=== PATIENT | female | born 1960 | race American Indian/Alaskan Native ===

== ENCOUNTER 2022-10-02 05:43 | Observation (INO) | payer BC ==
[2022-10-02] MEDS ORDERED: NITROGLYCERIN 0.4 MG/TAB SL ONE (06:12)
[2022-10-02] MEDS ORDERED: ASPIRIN EC 325 MG TABLET PO ONE (06:12)
[2022-10-02 06:23] LABS: Hematocrit 39.9 % (36.0-45.0); Lymphocytes % 22.9 % (15.3-44.8); MCV 94.7 fL (80-100); MPV 7.6 fL (7.6-11.3); RBC Red Blood Cell Count 4.22 M/uL (3.86-4.86)
[2022-10-02 06:42] LABS: Albumin 3.5 g/dL (3.4-5.0); Bilirubin Total 0.5 mg/dL (0.2-1.0); Potassium 3.4 mmol/L (3.5-5.1); Protein, Total 7.9 g/dL (6.4-8.2); Troponin High Sensitivity 4.3 pg/mL (<58.9)
[2022-10-02] MEDS ORDERED: ACETAMINOPHEN 500 MG TAB ONE (06:42)
--- NOTE | 2022-10-02 06:56 | ER ---
Nurse's Notes [facility] Name: Trudi Pate Age: 61 yrs Sex: Female : 1960 Arrival Date: 10/02/2022 Time: 05:46 Bed 4 Private MD: Diagnosis: Chest pain, unspecified Presentation: 10/02 05:56 Chief complaint: Patient states: "I have been having a lot of pressure in my chest. It tw5 isn't really pain, it is just pressure. I dont really know how to describe it except I just feel weird. ". Coronavirus screen: Vaccine status: Patient reports receiving the 2nd dose of the covid vaccine. Moderna. Ebola Screen: Patient negative for fever greater than or equal to 101.5 degrees Fahrenheit, and additional compatible Ebola Virus Disease symptoms Patient denies exposure to infectious person. Patient denies travel to an Ebola-affected area in the 21 days before illness onset. Risk Assessment: Do you want to hurt yourself or someone else? Patient reports no desire to harm self or others. Onset of symptoms is unknown. 05:56 Method Of Arrival: Wheelchair tw5 05:56 Acuity: MOIRA 2 tw5 06:20 Initial Sepsis Screen: Does the patient meet any 2 criteria? No. Patient's initial ll3 sepsis screen is negative. Does the patient have a suspected source of infection? No. Patient's initial sepsis screen is negative. Triage Assessment: 06:00 General: Appears in no apparent distress. Behavior is calm, cooperative, appropriate tw5 for age. Pain: Pain currently is 6 out of 10 on a pain scale. Cardiovascular: Capillary refill < 3 seconds. Historical: - Allergies: 06:00 PENICILLINS; tw5 06:00 Codeine; tw5 - Home Meds: 06:00 propranolol Oral [Active]; tw5 - PMHx: 06:00 Migraine; tw5 - PSHx: 06:00 Appendectomy; tubal ligation; heart ablation-2003; tw5 - Immunization history:: Flu vaccine is not up to date. - Social history:: Smoking status: Patient reports the use of cigarette tobacco products, smokes one-half pack cigarettes per day. - Family history:: not pertinent. Screenin:00 [facility] Fall Risk Assessment (Adult) History of falling in the last 3 months, ll3 including since admission No falls in past 3 months (0 pts) Confusion or Disorientation No (0 pts) Intoxicated or Sedated No (0 pts) Impaired Gait No (0 pts) Mobility Assist Device Used No (0 pt) Altered Elimination No (0 pt) Score/Fall Risk Level 0 - 2 = Low Risk Oriented to surroundings, Maintained a safe environment, Educated pt \\T\\ family on fall prevention, incl call for assistance when getting out of bed. Abuse screen: Denies threats or abuse. Denies injuries from another. Nutritional screening: No deficits noted. Tuberculosis screening: No symptoms or risk factors identified. Assessment: 06:20 General: Appears uncomfortable, Behavior is calm, cooperative. Pain: Complains of pain ll3 in anterior aspect of right upper chest, anterior aspect of left upper chest and mid-sternal area Pain radiates to right clavicle, left clavicle and left submandibular area Pain currently is 7 out of 10 on a pain scale. Quality of pain is described as pressure, Pain began 2 weeks ago Is continuous. Neuro: Level of Consciousness is awake, alert, obeys commands, Oriented to person, place, time, situation. Cardiovascular: Reports chest pain, shortness of breath, Patient's skin is warm and dry. Rhythm is sinus rhythm Chest pain is described as diffuse, Pain is 7 out of 10 on a pain scale. quality is pressure, is located in right left anterior chest wall radiates to left back jaw(s) began 2 weeks ago episodes are continuous. Respiratory: Reports shortness of breath at rest Respiratory effort is even, unlabored, Respiratory pattern is regular, symmetrical. Derm: Skin is pink, warm \\T\\ dry. 06:59 Reassessment: Patient and/or family updated on plan of care and expected duration. Pain ll3 level reassessed. Patient is alert, oriented x 3, equal unlabored respirations, skin warm/dry/pink. States pain is 1/10 Patient states feeling better. Patient states symptoms have improved. 08:06 Reassessment: Patient appears in no apparent distress at this time. Patient and/or hb family updated on plan of care and expected duration. Pain level reassessed. Patient is alert, oriented x 3, equal unlabored respirations, skin warm/dry/pink. 09:26 Reassessment: Patient appears in no apparent distress at this time. Patient and/or hb family updated on plan of care and expected duration. Pain level reassessed. Patient is alert, oriented x 3, equal unlabored respirations, skin warm/dry/pink. 09:40 Reassessment: Dr. Blas at bedside. hb 10:45 Reassessment: Patient appears in no apparent distress at this time. Patient and/or hb family updated on plan of care and expected duration. Pain level reassessed. Patient is alert, oriented x 3, equal unlabored respirations, skin warm/dry/pink. Vital Signs: 05:54 BP 149 / 98; Pulse 91; Resp 17; Pulse Ox 100% on R/A; pf1 05:56 Resp 18; Temp 98.6; Weight 58.06 kg; Height 5 ft. 4 in. (162.56 cm); Pain 6/10; tw5 06:21 Pain 5/10; ll3 06:26 Pain 3/10; ll3 06:31 Pain 1/10; ll3 08:06 BP 148 / 96; Pulse 79; Resp 15; Pulse Ox 100% on R/A; hb 09:26 BP 144 / 92; Pulse 85; Resp 16; Pulse Ox 99% on R/A; Pain 0/10; hb 05:56 Body Mass Index 21.97 (58.06 kg, 162.56 cm) tw5 ED Course: 05:46 Patient arrived in ED. ja2 05:48 Jairo Saab MD is Attending Physician. rt 05:58 Triage completed. tw5 06:00 Arm band placed on. tw5 06:20 Inserted saline lock: 22 gauge in left antecubital area, using aseptic technique. Blood ll3 collected. 06:20 Initial lab(s) drawn, by me, sent to lab. Patient maintains SpO2 saturation greater ll3 than 95% on room air. 06:39 Chest Single View XRAY In Process Unspecified. EDMS 06:56 Huy Blas MD is Hospitalizing Provider. rt 07:00 Patient has correct armband on for positive identification. Placed in gown. Bed in low ll3 position. Call light in reach. Side rails up X 1. Client placed on continuous cardiac and pulse oximetry monitoring. NIBP monitoring applied. 07:02 No provider procedures requiring assistance completed. ll3 09:26 Amy Rizo, ISMAEL is Primary Nurse. hb 11:09 Patient admitted, IV remains in place. hb Administered Medications: 06:17 Drug: Nitroglycerin 0.4 mg Route: Sublingual; ll3 06:21 Follow up: Pain 5/10 Adult; Response: No adverse reaction; Pain is decreased ll3 06:17 Drug: Aspirin 325 mg Route: PO; ll3 06:44 Follow up: Response: No adverse reaction ll3 06:22 Drug: Nitroglycerin 0.4 mg Route: Sublingual; ll3 06:26 Follow up: Pain 3/10 Adult; Response: No adverse reaction; Pain is decreased ll3 06:27 Drug: Nitroglycerin 0.4 mg Route: Sublingual; ll3 06:31 Follow up: Pain 1/10 Adult; Response: No adverse reaction; Pain is decreased ll3 06:45 Drug: Tylenol 1000 mg Route: PO; ll3 07:40 Follow up: Response: No adverse reaction Medication: 07:01 VIS not applicable for this client. ll3 Outcome: 06:56 Decision to Hospitalize by Provider. rt 11:09 Admitted to Med/surg accompanied by tech, family with patient, via wheelchair, room hb 214, with chart. 11:09 Condition: stable 11:09 Instructed on the need for admit, Demonstrated understanding of instructions. 11:43 Patient left the ED. eb Signatures: Dispatcher [employer] EDMS Amy Rizo RN RN Kelsea Avilez Daksha Amaro [facility] Kathleen Luna 5 Luciana Whitehead RN RN ll3 Jairo Saab MD MD rt Faye navarro RN RN pf1 Corrections: (The following items were deleted from the chart) 06:59 06:55 General: Appears uncomfortable, Behavior is calm, cooperative, ll3 ll3 06:59 06:55 Pain: Complains of pain in anterior aspect of right upper chest, anterior aspect ll3 of left upper chest and mid-sternal area Pain radiates to right clavicle, left clavicle and left submandibular area Pain currently is 7 out of 10 on a pain scale. Quality of pain is described as pressure, Pain began 2 weeks ago Is continuous, ll3 06:59 06:55 Neuro: Level of Consciousness is awake, alert, obeys commands, Oriented to ll3 person, place, time, situation, ll3 06:59 06:55 Cardiovascular: Reports chest pain, shortness of breath, Patient's skin is warm ll3 and dry. Rhythm is sinus rhythm Chest pain is described as diffuse, Pain is 7 out of 10 on a pain scale. quality is pressure, is located in right left anterior chest wall radiates to left back jaw(s) began 2 weeks ago episodes are continuous ll3 06:55 Respiratory: Reports shortness of breath at rest Respiratory effort is even, ll3 unlabored, Respiratory pattern is regular, symmetrical, ll3 06:55 Derm: Skin is pink, warm \\T\\ dry. ll3 ll3
--- NOTE | 2022-10-02 06:56 | EDPHYS ---
Physician Documentation [facility] Name: Trudi Pate Age: 61 yrs Sex: Female : 1960 Arrival Date: 10/02/2022 Time: 05:46 Bed 4 Private MD: ED Physician Jairo Saab HPI: 10/02 06:15 This 61 yrs old Female presents to ER via Wheelchair with complaints of rt Chest Pressure, Breathing Difficulty, O2 91%. 06:15 The patient or guardian reports chest pain that is located primarily in the substernal rt area. Onset: this morning. The pain does not radiate. Associated signs and symptoms: Pertinent positives: shortness of breath. The chest pain is described as a pressure. Modifying factors: The symptoms are alleviated by rest, the symptoms are aggravated by activity. Severity of pain: At its worst the pain was moderate. The patient has not experienced similar symptoms in the past. Patient presents to the ED with a substernal chest pressure as well as shortness of breath starting today. Is exertional, relieved with rest. Patient has not had similar symptoms previously. Patient states that she felt unwell for the past week but could not be more specific. Denies other acute complaints at this time, symptoms are moderate in severity, no other aggravating or alleviating factors.. Historical: - Allergies: 06:00 PENICILLINS; tw5 06:00 Codeine; tw5 - Home Meds: 06:00 propranolol Oral [Active]; tw5 - PMHx: 06:00 Migraine; tw - PSHx: 06:00 Appendectomy; tubal ligation; heart ablation-2003; tw - Immunization history:: Flu vaccine is not up to date. - Social history:: Smoking status: Patient reports the use of cigarette tobacco products, smokes one-half pack cigarettes per day. - Family history:: not pertinent. ROS: 06:15 Constitutional: Negative for fever, chills, and weight loss, Abdomen/GI: Negative for rt abdominal pain, nausea, vomiting, diarrhea, and constipation, MS/Extremity: Negative for injury and deformity, Skin: Negative for injury, rash, and discoloration, Neuro: Negative for headache, weakness, numbness, tingling, and seizure, Psych: Negative for depression, anxiety, suicide ideation, homicidal ideation, and hallucinations. 06:15 Cardiovascular: Positive for chest pain, Negative for edema. 06:15 Respiratory: Positive for shortness of breath, Negative for cough. 06:15 Abdomen/GI: Positive for Exam: 06:15 Constitutional: This is a well developed, well nourished patient who is awake, alert, rt and in no acute distress. Head/Face: Normocephalic, atraumatic. Neck: Trachea midline, no thyromegaly or masses palpated, and no cervical lymphadenopathy. Supple, full range of motion without nuchal rigidity, or vertebral point tenderness. No Meningismus. Chest/axilla: Normal chest wall appearance and motion. Nontender with no deformity. No lesions are appreciated. Cardiovascular: Regular rate and rhythm with a normal S1 and S2. No gallops, murmurs, or rubs. Normal PMI, no JVD. No pulse deficits. Respiratory: Lungs have equal breath sounds bilaterally, clear to auscultation and percussion. No rales, rhonchi or wheezes noted. No increased work of breathing, no retractions or nasal flaring. Abdomen/GI: Soft, non-tender, with normal bowel sounds. No distension or tympany. No guarding or rebound. No evidence of tenderness throughout. Skin: Warm, dry with normal turgor. Normal color with no rashes, no lesions, and no evidence of cellulitis. MS/ Extremity: Pulses equal, no cyanosis. Neurovascular intact. Full, normal range of motion. Neuro: Awake and alert, GCS 15, oriented to person, place, time, and situation. Cranial nerves II-XII grossly intact. Motor strength 5/5 in all extremities. Sensory grossly intact. Cerebellar exam normal. Normal gait. Psych: Awake, alert, with orientation to person, place and time. Behavior, mood, and affect are within normal limits. 06:15 ECG was reviewed by the Attending Physician. Vital Signs: 05:54 BP 149 / 98; Pulse 91; Resp 17; Pulse Ox 100% on R/A; pf1 05:56 Resp 18; Temp 98.6; Weight 58.06 kg; Height 5 ft. 4 in. (162.56 cm); Pain 6/10; tw5 06:21 Pain 5/10; ll3 06:26 Pain 3/10; ll3 06:31 Pain 1/10; ll3 08:06 BP 148 / 96; Pulse 79; Resp 15; Pulse Ox 100% on R/A; hb 09:26 BP 144 / 92; Pulse 85; Resp 16; Pulse Ox 99% on R/A; Pain 0/10; hb 05:56 Body Mass Index 21.97 (58.06 kg, 162.56 cm) tw5 MDM: 05:53 Patient medically screened. rt 06:56 Differential diagnosis: acute myocardial infarction, pneumonia, pneumothorax, pulmonary rt embolus. HEART Score: History: Highly Suspicious (2), ECG: Normal (0), Age: > 45 and < 65 years (1), Risk Factors: > or = 3 Risk factors for atherosclerotic disease (2), Troponin: < or = 1 x Normal Limit (0), Total Score = 5. Data reviewed: vital signs, nurses notes, lab test result(s), EKG, radiologic studies. Consideration of Admission/Observation Patient was admitted/placed on observation. Management of patient was discussed with the following: Hospitalist: Agrees to admit. I considered the following discharge prescriptions or medication management in the emergency department Medications were administered in the Emergency Department. See MAR. Independent interpretation of the following test(s) in the Emergency Department X-Ray: My interpretation is No pneumonia, pneumothorax. Test considered but Not performed: CT: Low risk for PE, CT scan not indicated. Care significantly affected by the following chronic conditions: Hypertension. Care significantly affected by the following Social Determinants of Health: Tobacco abuse. Response to treatment: the patient's symptoms have resolved after treatment. 10/02 05:54 Order name: CBC with Diff; Complete Time: 06:42 rt 10/02 05:54 Order name: CMP; Complete Time: 06:42 rt 10/02 05:54 Order name: Troponin High Sensitivity; Complete Time: 06:42 rt 10/02 05:54 Order name: BNP; Complete Time: 06:42 rt 10/02 06:46 Order name: SARS RAPID ll3 10/02 06:56 Order name: Troponin High Sensitivity: Draw 3 hours after initial rt 10/02 05:54 Order name: Chest Single View XRAY rt 10/02 10:18 Order name: Troponin High Sensitivity EDMS 10/02 10:18 Order name: Troponin High Sensitivity EDMS 10/02 10:18 Order name: Troponin High Sensitivity EDMS 10/02 10:18 Order name: Troponin High Sensitivity EDMS 10/02 10:25 Order name: D-Dimer EDME 10/02 10:25 Order name: Thyroid Stimulating Hormone EDME 10/02 10:17 Order name: CONS Physician Consult EDME 10/02 10:18 Order name: Heart Healthy EDME EC:15 Rate is 90 beats/min. Rhythm is regular, Normal Sinus Rhythm with No ectopy. QRS [place] rt is Normal. [place] interval is normal. QRS interval is normal. QT interval is normal. No Q waves. T waves are Normal. No ST changes noted. Interpreted by me. Administered Medications: 06:17 Drug: Nitroglycerin 0.4 mg Route: Sublingual; ll3 06:21 Follow up: Pain 5/10 Adult; Response: No adverse reaction; Pain is decreased ll3 06:17 Drug: Aspirin 325 mg Route: PO; ll3 06:44 Follow up: Response: No adverse reaction ll3 06:22 Drug: Nitroglycerin 0.4 mg Route: Sublingual; ll3 06:26 Follow up: Pain 3/10 Adult; Response: No adverse reaction; Pain is decreased ll3 06:27 Drug: Nitroglycerin 0.4 mg Route: Sublingual; ll3 06:31 Follow up: Pain 1/10 Adult; Response: No adverse reaction; Pain is decreased ll3 06:45 Drug: Tylenol 1000 mg Route: PO; ll3 07:40 Follow up: Response: No adverse reaction hb Disposition Summary: 10/02/22 06:56 Hospitalization Ordered Hospitalization Status: Observation rt Provider: Huy Blas rt Location: Telemetry/MedSurg (observation) rt Condition: Stable rt Problem: new rt Symptoms: are resolved rt Bed/Room Type: Standard rt Room Assignment: 214(10/02/22 10:31) eb Diagnosis - Chest pain, unspecified rt Forms: - Medication Reconciliation Form rt - SBAR form rt Signatures: Dispatcher [employer] [facility] Kelsea Avilez Kathleen Luna tw5 Luciana Whitehead RN RN ll3 Jairo Saab MD MD rt Amy Rizo RN hb Corrections: (The following items were deleted from the chart) 10:31 06:56 rt eb
[2022-10-02 07:21] LABS: SARS-CoV-2 Antigen Rapid Res Negative (Negative)
--- NOTE | 2022-10-02 08:44 | RAD REPORT ---
EXAM DESCRIPTION: RAD - Chest Single View - 10/02/2022 6:38 am CLINICAL HISTORY: CHEST PAIN Chest pain. COMPARISON: No comparisons FINDINGS: Portable technique limits examination quality. The lungs are emphysematous but grossly clear. The heart is normal in size. No displaced fractures. IMPRESSION: No acute intrathoracic process suspected.
[2022-10-02] MEDS ORDERED: NITROGLYCERIN 0.4 MG/TAB SL PRN (10:15)
[2022-10-02 12:16] VITALS: BMI 20.5
[2022-10-02 12:32] VITALS: O2SAT 99
[2022-10-02 16:45] VITALS: BP 102/60; TEMP 98
--- NOTE | 2022-10-02 17:23 | P.SSS ---
Patient History Date of Service: 10/02/22 Reason for admission: chest pain History of Present Illness: 61yo F, PMH: Migraines, h/o SVT s/p ablation, nicotine dependence. Presented to ED due to chest pressure. First episode occurred yesterday afternoon, while sitting on her couch. Radiated towards back and neck. [place] like a choking pressure sensation. Nothing seems to exacerbate or relieve the pain. Resolved on its own. She has been feeling "off" for the last ~2 days. Today, she woke up with pressure in her chest again, got to work and didn't feel well, so presented to ED. In the ED, EKG without ST-t wave changes, trop negative, CXR without acute findings. Vitals WNL. Given aspirin and nitroglycerin and had improvement of her pain. She did report having a URI ~2-3 weeks ago and was treated with zpack. Allergies codeine Allergy (Verified 10/02/22 09:20) Itching/Hives/Rash Penicillins Allergy (Verified 10/02/22 09:20) Anaphylaxis - Past Medical/Surgical History Has patient received pneumonia vaccine in the past: No Diabetic: No -: Migraines - on propranolol -: Appy -: tubial ligation -: Plate in the left leg -: Heart ablation - Social History Smoking Status: Current some day smoker Alcohol use: Yes CD- Drugs: No Place of Residence: Home Review of Systems 10-point ROS is otherwise unremarkable Physical Examination - Vital Signs Temperature: 98.0 F Blood Pressure: 102/60 Pulse: 72 Respirations: 14 Pulse Ox (%): 95 - Physical Exam General: Alert, In no apparent distress, Oriented x3 HEENT: EOMI, Sclerae nonicteric Neck: Supple, No LAD Respiratory: Clear to auscultation bilaterally, Normal air movement Cardiovascular: No edema, Regular rate/rhythm, No murmurs Gastrointestinal: Soft and benign, Non-distended, No tenderness Musculoskeletal: No contractures, No erythema, No tenderness Integumentary: No rashes, No significant lesion Neurological: Normal speech, Normal strength at 5/5 x4 extr, Normal affect - Studies Laboratory Data (last 24 hrs) 10/02/22 06:15: Sodium 139, Potassium 3.4 L, BUN 18, Creatinine 0.82, Glucose 95, Total Bilirubin 0.5, AST 18, ALT 28, Alkaline Phosphatase 79 10/02/22 06:15: WBC 8.60, Hgb 13.7, Hct 39.9, Plt Count 405 Treatment Summary: Patient presented with chest pressure. EKG and cardiac troponins were normal / flat. Chest x-ray without any acute findings. Lab work within normal limits, including d-dimer. Cardiology was consulted. No indication for further inpatient evaluation. Stable for discharge home. Follow up with PCP within 1 week Follow up with Cardiology this Wednesday for outpatient stress testing - Disposition Discharge Date: 10/02/22 Disposition: ROUTINE DISCHARGE Condition: GOOD Diet: AHA Time Spent Managing Pts Care (In Minutes): 75
--- NOTE | 2022-10-02 18:53 | CON ---
Date of Consultation: 10/02/2022 Reason For Consultation: Chest pain. History Of Present Illness: 61-year-old female comes in with chest pain, pressure like, no radiation , with some shortness of breath. She is an active smoker, about half pack per day for about 40 to 50 years. Denies having any nausea, vomiting, or diaphoresis and there is no exertional chest pain. S he had the chest pain last earlier this morning and she is chest-pain free at the present time. Past Medical History: Significant for hypertension. Medications: Refer reconciliation sheet for detailed list. Allergies: NO KNOWN DRUG ALLERGIES. Family History: No premature coronary artery disease or cancer. Social History: She smokes half pack per day. Does not drink or use any drugs. Review of Systems: All systems reviewed and they are negative except as mentioned in HPI. Physical Examination: Vital Signs: Reviewed. Head and Neck: Pupils are equal, reactive to light. Intact eye movements. No JVD. No cervical lym phadenopathy. Neck is supple. Thyroid is not enlarged. Lungs: Clear to auscultation bilaterally. No rhonchi, wheezing, or crackles. No accessory muscle us e. Heart: Regular rate and rhythm. No extra sounds. Abdomen: Soft, nontender. Bowel sounds positive. No organomegaly. No masses or hernia. No rigidi ty or rebound. Extremities: No edema, clubbing, or cyanosis. Intact pulses. Skin: No rashes. Neurologic: Alert, awake, oriented x3. No acute focal deficits appreciated. Investigations: Troponin x3 are negative. BUN 18, creatinine 0.82, hemoglobin is 13.7. Assessment/recommendations: 1.Chest pain. It is atypical with negative cardiac enzymes. She is chest pain free. If she contin ues to be chest pain free, patient can be released on aspirin and with instructions to quit smoking. Follow up as an outpatient for a stress test and echo. To be sent on aspirin and metoprolol alverto cano. 2.Hypertension. Start metoprolol-XL 25 mg daily. 3.Smoker. She was counseled. SR/MODL Voice ID: [id number] Report ID: [id number]
[2022-10-03] MEDS ORDERED: ENOXAPARIN 40 MG/0.4 ML SQ SCH (09:00)
== END 2022-10-02 17:59 | disposition home or self-care (01) ==
LOC: ER 05:43 → ERHOLD 10:14 → 2ND 11:10
PROVIDERS: ADMIT Hospitalist; ATTEND Hospitalist
DX: R07.9 Chest pain, unspecified (principal); I10 Essential (primary) hypertension; F17.210 Nicotine dependence, cigarettes, uncomplicated; Z88.0 Allergy status to penicillin; Z88.6 Allergy status to analgesic agent; Z20.822 Contact with and (suspected) exposure to COVID-19
CPT/HCPCS: 36415; 71045; 80053; 83880; 84484; 85025; 85379; 87811; 93005; 99285; G0378